=== PATIENT | female | born 1965 | race Two or more races ===

== ENCOUNTER → 2017-06-01 | Outpatient (CLI) | payer OTHER | END | disposition home or self-care (01) | LOC: CFH 13:40 | PROVIDERS: ATTEND Obstetrics & Gynecology | DX: Z12.31 Encounter for screening mammogram for malignant neoplasm of breast (principal) | CPT/HCPCS: 77063; G0202 ==

== ENCOUNTER 2019-03-16 12:43 | Outpatient (CLI) | payer OTHER | END 2019-03-16 23:59 | disposition home or self-care (01) | LOC: CFH 12:43 | PROVIDERS: ATTEND Nurse Practitioner Family | DX: N63.12 Unspecified lump in the right breast, upper inner quadrant (principal); R92.2 Inconclusive mammogram; N64.4 Mastodynia | CPT/HCPCS: 76641 ==

== ENCOUNTER 2019-06-29 05:42 | Day surgery (SDC) | payer OTHER ==
[2019-06-27 13:20] LABS: BASOPHILS # (AUTO) 0.06 x10^3/uL (0-0.1); BASOPHILS % (AUTO) 1 % (0-1); EOSINOPHILS # (AUTO) 0.16 x10^3/uL (0-0.4); EOSINOPHILS % (AUTO) 2 % (1-7); LYMPHOCYTES # (AUTO) 2.58 x10^3/uL (1-3.4); LYMPHOCYTES % (AUTO) 37 % (22-44); MD NO; MEAN CORPUSCULAR HEMOGLOBIN 32.6 pg (27.0-34.8); MEAN CORPUSCULAR HGB CONC 32.8 g/dL (32.4-35.8); MEAN CORPUSCULAR VOLUME 99.4 fL (80-100); MONOCYTES # (AUTO) 0.51 x10^3/uL (0.2-0.8); MONOCYTES % (AUTO) 7 % (2-9); NEUTROPHILS # (AUTO) 3.63 x10^3/uL (1.8-6.8); NEUTROPHILS % (AUTO) 52 % (42-75); PLATELET COUNT 366 x10^3/uL (130-400); RED BLOOD COUNT 4.33 x10^6/uL (3.82-5.3); RED CELL DISTRIBUTION WIDTH 14.3 % (9.6-15.2)
[~2019-06-29] VITALS: Ht 149.9 cm; Wt 55.0 kg
[~2019-06-29 05:42] MED LIST: CITA20TA6 PO; EZET10TA70 PO; FLUC150T2 PO; OXYB5TAB10 PO; PANT40TA5 PO; SIMV40TA3 PO; TRAZ50TA66 PO; VENL150T PO; ampicillin PO
[2019-06-29] MEDS ORDERED: EPINEPHRINE 1 MG/ML, 1ML ONE (06:36)
[2019-06-29] MEDS ORDERED: BUPIVACAINE/PF 0.25% ONE (06:36)
[2019-06-29] MEDS ORDERED: SILVER NITRATE STICK TP ONE (06:36)
[2019-06-29] MEDS ORDERED: LACTATED RINGERS 1,000 ML IV SCH (06:38)
[2019-06-29] MEDS ORDERED: MIDAZOLAM 1 MG/ML, 2ML ONE (07:22)
[2019-06-29] MEDS ORDERED: FENTANYL PF 100 MCG/2ML ONE (07:22)
[2019-06-29] MEDS ORDERED: ONDANSETRON 2MG/ML, 2ML IV PRN (07:30)
[2019-06-29] MEDS ORDERED: HYDROmorphone 2 MG/ML, 1ML IVPush PRN (07:30)
[2019-06-29] MEDS ORDERED: OXYcodone 5 MG/5 ML ORAL.SOL UDC PO PRN (07:30)
[2019-06-29] MEDS ORDERED: LORazepam 2 MG/ML, 1ML IVPush PRN (07:30)
[2019-06-29] MEDS ORDERED: PROMETHAZINE 25 MG/ML, 1ML IV PRN (07:30)
[2019-06-29] MEDS ORDERED: PROMETHAZINE 25 MG SUPP PR PRN (07:30)
[2019-06-29] MEDS ORDERED: ONDANSETRON ODT 8 MG PO PRN (07:30)
[2019-06-29] MEDS ORDERED: ACETAMINOPHEN 325 MG TABLET PO PRN (07:30)
[2019-06-29] MEDS ORDERED: FENTANYL PF 100 MCG/2ML IV PRN (07:30)
[2019-06-29] MEDS ORDERED: DIAZEPAM 5 MG/ML, 2ML IVPush PRN (07:30)
[2019-06-29] MEDS ORDERED: ONDANSETRON 2MG/ML, 2ML ONE (08:12)
[2019-06-29] MEDS ORDERED: PROPOFOL 10 MG/ML, 20ML ONE (08:12)
[2019-06-29] MEDS ORDERED: SUCCINYLCHOLINE 20 MG/ML, 10ML ONE (08:12)
[2019-06-29] MEDS ORDERED: ROCURONIUM 10MG/ML,5ML ONE (08:12)
[2019-06-29] MEDS ORDERED: SUGAMMADEX 200 MG/2 ML IVPush ONE (08:12)
[2019-06-29] MEDS ORDERED: CEFAZOLIN 1,000 MG ONE (08:12)
[2019-06-29] MEDS ORDERED: GLYCOPYRROLATE 0.2MG/1ML, 5ML ONE (08:12)
[2019-06-29] MEDS ORDERED: DEXAMETHASONE 4 MG/ML, 1ML ONE (08:12)
[2019-06-29] MEDS ORDERED: NEOSTIGMINE 1 MG/ML, 10ML ONE (08:12)
== END 2019-06-29 11:06 | disposition home or self-care (01) ==
LOC: OUT 05:42
PROVIDERS: ATTEND Obstetrics & Gynecology
DX: N95.0 Postmenopausal bleeding (principal); N84.0 Polyp of corpus uteri; K21.9 Gastro-esophageal reflux disease without esophagitis; F41.9 Anxiety disorder, unspecified; E78.00 Pure hypercholesterolemia, unspecified; Z79.899 Other long term (current) drug therapy; Z90.49 Acquired absence of other specified parts of digestive tract
CPT/HCPCS: 36415; 58558; 81025; 85025; 86850; 86900; 88305; J0171; J0690; J1100; J2250; J2405; J2704; J3010; J3490; J7120; J2710; J0330